=== PATIENT | male | born 1945 | race Caucasian/White ===

== ENCOUNTER → 2018-08-09 | Outpatient (CLI) | payer MEDICARE | END | disposition home or self-care (01) | LOC: EDUNIT# 11:00 → SHCH 11:15 | PROVIDERS: ATTEND Internal Medicine Cardiovascular Disease | DX: I73.9 Peripheral vascular disease, unspecified (principal); I70.0 Atherosclerosis of aorta; I51.7 Cardiomegaly; I35.0 Nonrheumatic aortic (valve) stenosis; G45.8 Other transient cerebral ischemic attacks and related syndromes | CPT/HCPCS: 93306; 93880 ==

== ENCOUNTER → 2018-08-11 | Outpatient (CLI) | payer MEDICARE ==
[~2018-08-11] VITALS: Ht 177.8 cm; Wt 81.6 kg
[~2018-08-11] MED LIST: REGADENOSON 0.4 MG/5 ML PF SYG IVP SCH
== END | disposition home or self-care (01) ==
LOC: SHCH 07:48 → EDUNIT# 08:00
PROVIDERS: ATTEND Internal Medicine Cardiovascular Disease
DX: I35.0 Nonrheumatic aortic (valve) stenosis (principal)
CPT/HCPCS: 78452; 93017; 96374; A9500 ×2; J2785

== ENCOUNTER → 2019-04-20 | Outpatient (CLI) | payer MEDICARE | END | disposition home or self-care (01) | LOC: OIH 13:19 | PROVIDERS: ATTEND Internal Medicine | DX: J44.9 Chronic obstructive pulmonary disease, unspecified (principal) | CPT/HCPCS: 71046 ==

== ENCOUNTER → 2021-03-17 | Outpatient (CLI) | payer MEDICARE ==
[~2021-03-17] MED LIST changes: +IOHEXOL-350 50ML VIAL IV ONE; +IOHEXOL-350 75 ML VIAL IV ONE; -REGADENOSON 0.4 MG/5 ML PF SYG IVP SCH
== END | disposition home or self-care (01) ==
LOC: CANPRECLI → RAH 07:31
PROVIDERS: ATTEND Internal Medicine Cardiovascular Disease
DX: I71.4 Abdominal aortic aneurysm, without rupture (principal); I71.2 Thoracic aortic aneurysm, without rupture
CPT/HCPCS: 75635; Q9967 ×2

== ENCOUNTER 2021-04-14 08:47 | Day surgery (SDC) | payer MEDICARE ==
[2021-04-11 13:06] LABS: BASOPHILS % (AUTO) 0.7 % (0.0-5.0); EOSINOPHILS % (AUTO) 3.9 % (0.0-8.0); HEMATOCRIT 40.6 % (42-54); LYMPHOCYTES % (AUTO) 20.8 % (21.0-51.0); MEAN CORPUSCULAR HEMOGLOBIN 32.1 pg (27.0-33.0); MEAN CORPUSCULAR HGB CONC 34.2 g/dL (32.0-36.0); MEAN CORPUSCULAR VOLUME 93.8 fL (79-99); MONOCYTES % (AUTO) 9.8 % (3.0-13.0); PLATELET COUNT (AUTO) 148 K/uL (130-400); RED BLOOD CELL COUNT(AUTO) 4.33 MIL/uL (4.50-6.20); RED CELL DISTRIBUTION WIDTH 14.2 % (11.0-15.5); WHITE BLOOD COUNT (AUTO) 8.1 K/uL (4.8-10.8)
[2021-04-11 13:09] LABS: APPEARANCE,URINE Clear (CLEAR); BILIRUBIN,URINE Small (NEGATIVE); COLOR,URINE Dark Yellow (YELLOW); GLUCOSE, URINE (UA) Negative (NEGATIVE); KETONES,URINE Trace mg/dL (NEGATIVE); LEUKOCYTE ESTERASE ,URINE Trace (NEGATIVE); NITRATE,URINE Negative (NEGATIVE); OCCULT BLOOD,URINE Negative (NEGATIVE); PROTEIN,URINE Negative (NEGATIVE)
[2021-04-11 13:13] LABS: CREATININE 0.9 mg/dL (0.5-1.5); POTASSIUM 4.6 mmol/L (3.5-5.1)
[2021-04-11 13:15] LABS: INR 0.98 (0.85-1.15); PROTHROMBIN TIME 10.7 SEC (9.6-11.6)
[2021-04-11 13:17] LABS: PARTIAL THROMBOPLASTIN TIME 28.8 SEC (26.3-35.5)
[2021-04-11 13:35] LABS: BACTERIA,URINE Rare /HPF (None Seen); RBC,URINE 0-1 /HPF (0-1); SQUAMOUS EPITHELIAL CELL,UR Rare /HPF (0-2); WBC,URINE 0-1 /HPF (0-1)
[2021-04-11 17:06] VITALS: BP 178/92
[~2021-04-14] VITALS: Ht 177.8 cm; Wt 74.8 kg
[2021-04-14] VITALS (13 sets, daily range): BP systolic 101–156; BP diastolic 53–82
[~2021-04-14 08:47] MED LIST changes: +AEC81 PO; +IBUP-2077 PO; -IOHEXOL-350 50ML VIAL IV ONE; -IOHEXOL-350 75 ML VIAL IV ONE; +LISI10TA24 PO; +METO50TA18 PO; +MULT-1367 PO; +SERT-440 PO; +TAMS-1 PO; +UMEC1DIS IH
[2021-04-14] MEDS ORDERED: SODIUM CHLORIDE 0.9% 1000ML 1,000 ML IV ONE (10:10)
[2021-04-14] MEDS ORDERED: MIDAZOLAM HCL 1 MG/ML 2ML VIAL ONE (11:44)
[2021-04-14] MEDS ORDERED: HEPARIN SODIUM 1000UNIT/ML 10ML VIAL ONE (11:44)
[2021-04-14] MEDS ORDERED: IODIXANOL 320 MG/ML 100 ML VIAL ONE (11:44)
[2021-04-14] MEDS ORDERED: NITROGLYCERIN 2 MG/VIAL VIAL IV ONE (11:44)
[2021-04-14] MEDS ORDERED: MEPERIDINE-PF 25 MG/ML SYG ONE (11:44)
[2021-04-14] MEDS ORDERED: SODIUM BICARB 50MEQ 50ML VIAL 50 ML ONE (11:44)
[2021-04-14] MEDS ORDERED: LIDOCAINE HCL 2% 20ML ONE (11:45)
[2021-04-14] MEDS ORDERED: SODIUM CHLORIDE 0.9% 1000ML 1,000 ML IV SCH (13:30)
== END 2021-04-14 17:57 | disposition home or self-care (01) ==
LOC: DAH 08:47
PROVIDERS: ATTEND Internal Medicine Cardiovascular Disease
DX: I71.4 Abdominal aortic aneurysm, without rupture (principal); I10 Essential (primary) hypertension; Z85.46 Personal history of malignant neoplasm of prostate; Z88.2 Allergy status to sulfonamides; Z79.01 Long term (current) use of anticoagulants; Z79.82 Long term (current) use of aspirin; Z79.899 Other long term (current) drug therapy
CPT/HCPCS: 36246; 36415; 71045; 75625; 75716; 80048; 81001; 85025; 85610; 85730; 93005; A4215; A4216; A4221; A4222; A4223 ×3; A4606; A4663; C1769; C1894; J1644; J2175; J2250; J3490 ×3; J7030; Q9967; 96360; 96361; 99156; 99157

== ENCOUNTER → 2021-04-29 | Outpatient (CLI) | payer MEDICARE | END | disposition home or self-care (01) | LOC: SHCH 13:34 | PROVIDERS: ATTEND Internal Medicine Cardiovascular Disease | DX: I35.2 Nonrheumatic aortic (valve) stenosis with insufficiency (principal) | CPT/HCPCS: 93306; 93356 ==

== ENCOUNTER 2021-07-29 09:31 | Inpatient (IN) | payer MEDICARE ==
[2021-07-25 12:10] VITALS: BP 177/83
[2021-07-25 12:21] LABS: BASOPHILS % (AUTO) 0.7 % (0.0-5.0); EOSINOPHILS % (AUTO) 4.6 % (0.0-8.0); HEMATOCRIT 40.7 % (42-54); LYMPHOCYTES % (AUTO) 20.3 % (21.0-51.0); MEAN CORPUSCULAR HEMOGLOBIN 31.7 pg (27.0-33.0); MEAN CORPUSCULAR HGB CONC 34.4 g/dL (32.0-36.0); MEAN CORPUSCULAR VOLUME 92.3 fL (79-99); MONOCYTES % (AUTO) 9.8 % (3.0-13.0); NEUTROPHILS % (AUTO) 63.1 % (40.0-77.0); PLATELET COUNT (AUTO) 123 K/uL (130-400); RED BLOOD CELL COUNT(AUTO) 4.41 MIL/uL (4.50-6.20); RED CELL DISTRIBUTION WIDTH 13.9 % (11.0-15.5); WHITE BLOOD COUNT (AUTO) 6.8 K/uL (4.8-10.8)
[2021-07-25 12:32] LABS: INR 1.04 (0.85-1.15); PROTHROMBIN TIME 11.3 SEC (9.6-11.6)
[2021-07-25 12:33] LABS: PARTIAL THROMBOPLASTIN TIME 28.9 SEC (26.3-35.5)
[2021-07-25 12:35] LABS: ALBUMIN 4.1 g/dL (3.5-5.0); BILIRUBIN,TOTAL 0.6 mg/dL (0.2-1.0); CREATININE 0.7 mg/dL (0.5-1.5); POTASSIUM 4.6 mmol/L (3.5-5.1); TOTAL PROTEIN, SERUM 7.1 g/dL (6.0-8.3)
[2021-07-25 12:39] LABS: HEMOGLOBIN A1C 4.8 % (4.0-6.0)
[2021-07-29] VITALS (24 sets, daily range): BP systolic 112–181; BP diastolic 43–86
[~2021-07-29] VITALS: Ht 177.8 cm; Wt 76.2 kg
[~2021-07-29 09:31] MED LIST changes: +0.9%NACL 1000ML 1,000 ML IV ONE
[2021-07-29] MEDS ORDERED: CEFAZOLIN SODIUM 1 GM VIAL ONE (09:32)
[2021-07-29] MEDS: CEFAZOLIN SODIUM 1 GM VIAL ONE ×2 (09:58→10:45)
[2021-07-29] MEDS ORDERED: SUCCINYLCHOLINE CHLORIDE 20 MG/ML 10 ML VIAL ONE (10:10)
[2021-07-29] MEDS ORDERED: MIDAZOLAM HCL 1 MG/ML 2ML VIAL ONE (10:10)
[2021-07-29] MEDS ORDERED: ONDANSETRON 4MG INJ ONE (10:10)
[2021-07-29] MEDS ORDERED: LIDOCAINE PF 100MG/5ML (2%) SYRINGE 5ML ONE (10:10)
[2021-07-29] MEDS ORDERED: DEXAMETHASONE SOD PHOSPHATE 10MG/ML 1ML VIAL ONE (10:10)
[2021-07-29] MEDS ORDERED: FENTANYL CITRATE PF 50 MCG/1 ML 2ML VIAL ONE ×2 (10:11→12:56)
[2021-07-29] MEDS ORDERED: ROCURONIUM 10MG/1ML SYR 10 MG/ML ML ONE ×2 (10:11→12:33)
[2021-07-29] MEDS ORDERED: NEOSTIGMINE 5MG/5ML SYR IV ONE (10:11)
[2021-07-29] MEDS ORDERED: PROPOFOL 10 MG/ML 20ML VIAL IV ONE (10:11)
[2021-07-29] MEDS ORDERED: GLYCOPYRROLATE 1 MG/5 ML SYRINGE ONE (10:11)
[2021-07-29] MEDS ORDERED: MEPERIDINE-PF 25 MG/ML SYG ONE (10:16)
[2021-07-29] MEDS ORDERED: EPHEDRINE SULFATE 50 MG/ML AMPULE ONE ×2 (10:47→11:55)
[2021-07-29 12:50] LABS: HEMATOCRIT 33.1 % (42-54)
[2021-07-29] MEDS ORDERED: VASOPRESSIN 20 UNITS/ML 1ML VIAL ONE (12:52)
[2021-07-29] MEDS ORDERED: ALBUMIN (HUMAN) 5% 0 ML IV ONE (12:52)
[2021-07-29] MEDS ORDERED: ALBUMIN (HUMAN) 25% 150 ML IV ONE (12:55)
[2021-07-29] MEDS ORDERED: ACETAMINOPHEN 325 MG TAB PO PRN (14:00)
[2021-07-29] MEDS ORDERED: TRAMADOL HCL 50 MG TABLET PO PRN ×2 (14:00)
[2021-07-30] MEDS ORDERED: LISINOPRIL 10 MG TABLET ONE (00:09)
[2021-07-30 00:44] VITALS: BP 150/54
[2021-07-30 04:10] VITALS: BP 152/79
[2021-07-30 05:15] LABS: HEMATOCRIT 34.3 % (42-54); MEAN CORPUSCULAR HEMOGLOBIN 31.4 pg (27.0-33.0); MEAN CORPUSCULAR HGB CONC 33.8 g/dL (32.0-36.0); RED BLOOD CELL COUNT(AUTO) 3.69 MIL/uL (4.50-6.20); RED CELL DISTRIBUTION WIDTH 14.1 % (11.0-15.5); WHITE BLOOD COUNT (AUTO) 9.4 K/uL (4.8-10.8)
[2021-07-30 05:34] LABS: CREATININE 0.8 mg/dL (0.5-1.5); POTASSIUM 4.1 mmol/L (3.5-5.1)
[2021-07-30 07:32] VITALS: BP 157/60
[2021-07-30] MEDS ORDERED: LISINOPRIL 10 MG TABLET PO SCH (09:00)
[2021-07-30] MEDS ORDERED: TAMSULOSIN HCL 0.4 MG CAP.ER.24H PO SCH (09:00)
[2021-07-30] MEDS ORDERED: METOPROLOL TARTRATE 50 MG TAB PO SCH (09:00)
[2021-07-30] MEDS ORDERED: MULTIVITAMIN TABLET PO SCH (09:00)
[2021-07-30] MEDS ORDERED: ASPIRIN 81 MG EC TAB PO SCH (09:00)
[2021-07-30] MEDS ORDERED: Umeclidinium Brm/Vilanterol Tr (Anoro Ellipta 62.5-25 Mcg IH SCH (09:00)
[2021-07-30] MEDS ORDERED: SERTRALINE HCL 50 MG TABLET PO SCH (09:00)
[2021-07-30 11:19] VITALS: BP 134/68
[2021-07-30] MEDS ORDERED: CALCIUM CARB 500MG CHEW TAB PO PRN (15:30)
[2021-07-30 16:00] VITALS: BP 112/65
[2021-07-30] MEDS ORDERED: CLOPIDOGREL 75MG TAB PO SCH (17:00)
[2021-07-30] MEDS ORDERED: CLOP75TA14 PO (17:23)
== END 2021-07-30 19:28 | disposition home or self-care (01) | DRG 254 ==
LOC: DAHIP 09:31 → 4DH 14:41
PROVIDERS: ADMIT Thoracic Surgery (Cardiothoracic Vascular Surgery); ATTEND Thoracic Surgery (Cardiothoracic Vascular Surgery)
PROC: 041K0KL Bypass Right Femoral Artery to Popliteal Artery with Nonautologous Tissue Substitute, Open Approach (ICD-10-PCS; 2021-07-29)
PROC: 041L0JH Bypass Left Femoral Artery to Right Femoral Artery with Synthetic Substitute, Open Approach (ICD-10-PCS; principal; 2021-07-29 10:55)
PROC: 04CK0ZZ Extirpation of Matter from Right Femoral Artery, Open Approach (ICD-10-PCS; 2021-07-29 10:55)
DX: I73.9 Peripheral vascular disease, unspecified (principal); E87.70 Fluid overload, unspecified; E78.00 Pure hypercholesterolemia, unspecified; Z20.822 Contact with and (suspected) exposure to COVID-19; Z88.2 Allergy status to sulfonamides; Z79.899 Other long term (current) drug therapy
CPT/HCPCS: 36415; 71046; 80048; 80053; 80061; 83036; 85014; 85018; 85025; 85027; 85610; 85730; 86850; 86900; 86901; 87635; 93005; C1757; G0378; J0330; J0690; J1100; J1644; J2001; J2175; J2250; J2405; J2704; J2710; J3010; J3490; J7030; J7040; J7120; P9045; P9047

== ENCOUNTER → 2022-03-26 | Outpatient (CLI) | payer MEDICARE ==
[~2022-03-26] MED LIST changes: -0.9%NACL 1000ML 1,000 ML IV ONE; +CLOP75TA14 PO
== END | disposition home or self-care (01) ==
LOC: SHCH 12:39
PROVIDERS: ATTEND Internal Medicine Cardiovascular Disease
DX: I08.8 Other rheumatic multiple valve diseases (principal); I71.4 Abdominal aortic aneurysm, without rupture; E78.5 Hyperlipidemia, unspecified; I65.23 Occlusion and stenosis of bilateral carotid arteries; I70.203 Unspecified atherosclerosis of native arteries of extremities, bilateral legs; Z95.828 Presence of other vascular implants and grafts; I11.9 Hypertensive heart disease without heart failure
CPT/HCPCS: 93306; 93880; 93925

== ENCOUNTER → 2022-06-09 | Outpatient (CLI) | payer MEDICARE ==
[~2022-06-09] MED LIST changes: +IOHEXOL 350 MG/ML 100ML INFUS..BTL IV ONE; +IOHEXOL-350 50ML VIAL IV ONE
== END | disposition home or self-care (01) ==
LOC: RAH 09:25
PROVIDERS: ATTEND Internal Medicine Cardiovascular Disease
DX: I70.203 Unspecified atherosclerosis of native arteries of extremities, bilateral legs (principal); I77.1 Stricture of artery; I77.89 Other specified disorders of arteries and arterioles
CPT/HCPCS: 75635; Q9967 ×2

== ENCOUNTER → 2022-07-10 | Outpatient (CLI) | payer MEDICARE ==
[~2022-07-10] MED LIST changes: -IOHEXOL 350 MG/ML 100ML INFUS..BTL IV ONE; -IOHEXOL-350 50ML VIAL IV ONE
== END | disposition home or self-care (01) ==
LOC: RAH 13:37
PROVIDERS: ATTEND Family Medicine
DX: M47.816 Spondylosis without myelopathy or radiculopathy, lumbar region (principal); M48.061 Spinal stenosis, lumbar region without neurogenic claudication; I71.4 Abdominal aortic aneurysm, without rupture; M51.26 Other intervertebral disc displacement, lumbar region; M41.86 Other forms of scoliosis, lumbar region; M21.371 Foot drop, right foot
CPT/HCPCS: 72148

== ENCOUNTER 2024-09-04 11:47 | Observation (INO) | payer OTHER, MEDICARE ==
[~2024-09-04] VITALS: Ht 177.8 cm; Wt 63.5 kg
[~2024-09-04 11:47] MED LIST changes: +CLOP-31 PO; -CLOP75TA14 PO
[2024-09-04 12:28] LABS: BASOPHILS # (AUTO) 0.02 K/uL (0.00-0.20); BASOPHILS % (AUTO) 0.3 % (0.0-5.0); EOSINOPHILS # (AUTO) 0.07 K/uL (0.00-0.70); EOSINOPHILS % (AUTO) 0.9 % (0.0-8.0); HEMATOCRIT 31.6 % (42-54); IMMATURE GRANULOCYTE ABSOLUTE 0.07 K/uL (0-1); LYMPHOCYTES # (AUTO) 0.9 K/uL (1.0-4.8); LYMPHOCYTES % (AUTO) 12.3 % (21.0-51.0); MEAN CORPUSCULAR HGB CONC 36.1 g/dL (32.0-36.0); MEAN CORPUSCULAR VOLUME 85.9 fL (79-99); MONOCYTES # (AUTO) 0.7 K/uL (0.1-1.0); MONOCYTES % (AUTO) 9.3 % (3.0-13.0); NEUTROPHILS # (AUTO) 5.7 K/uL (1.8-7.7); NEUTROPHILS % (AUTO) 76.3 % (40.0-77.0); PLATELET COUNT (AUTO) 113 K/uL (130-400); RED BLOOD CELL COUNT(AUTO) 3.68 MIL/uL (4.50-6.20); RED CELL DISTRIBUTION WIDTH 14.6 % (11.0-15.5); WHITE BLOOD COUNT (AUTO) 7.4 K/uL (4.8-10.8)
[2024-09-04 12:35] LABS: INR 1.08 (0.85-1.15); PROTHROMBIN TIME 11.6 SEC (9.6-11.6)
[2024-09-04 12:37] LABS: PARTIAL THROMBOPLASTIN TIME 31.8 SEC (26.3-35.5)
[2024-09-04 12:40] LABS: ALBUMIN 3.5 g/dL (3.5-5.0); BILIRUBIN,DIRECT 0.4 mg/dL (0.0-0.3); BILIRUBIN,TOTAL 1.1 mg/dL (0.2-1.0); POTASSIUM 3.8 mmol/L (3.5-5.1); TOTAL PROTEIN, SERUM 6.6 g/dL (6.0-8.3)
[2024-09-04] MEDS: 0.9%NACL 1000ML 1,000 ML IV ONE (14:10)
[2024-09-04] MEDS ORDERED: acetaMINOPHEN 325 MG TAB PO PRN ×2 (15:30)
[2024-09-04] MEDS ORDERED: hydrALAZine 20MG/ML VIAL IV PRN (15:30)
[2024-09-04] MEDS ORDERED: ondanSETRON 4MG INJ IV PRN (15:30)
[2024-09-04] MEDS ORDERED: NITROGLYCERIN 0.4 MG SL TAB SL PRN (15:30)
[2024-09-04] MEDS ORDERED: PoTASSium chl 10% ELIXIR 20MEQ 20 MEQ/15 ML UDCUP PO PRN (16:30)
[2024-09-04] MEDS ORDERED: GLUCAGON 1MG KIT 1 MG ML IM PRN (16:30)
[2024-09-04] MEDS ORDERED: PoTASSium chloRIDE 20MEQ/100ML 100 ML IV PRN (16:30)
[2024-09-04] MEDS ORDERED: DEXTROSE 50%-WATER 50 ML DISP.SYRIN IV PRN (16:30)
[2024-09-04] MEDS ORDERED: MAGNESIUM 2GM PREMIX 50ML 50 ML IV PRN (16:30)
[2024-09-04] MEDS ORDERED: PoTASSium chloRIDE 20MEQ ER 20 MEQ ERTAB PO PRN (16:30)
[2024-09-04] MEDS: 0.9%NACL 1000ML 1,000 ML IV SCH (17:30)
[2024-09-04] MEDS: HEParin 5,000 UNIT VIAL SQ SCH (17:31)
[2024-09-04 21:21] LABS: BILIRUBIN,TOTAL 1.2 mg/dL (0.2-1.0); CREATININE 0.9 mg/dL (0.5-1.3); POTASSIUM 3.8 mmol/L (3.5-5.1)
[2024-09-04 22:07] VITALS: O2SAT 96
[2024-09-04 22:39] VITALS: BP 124/69; PULSE 89; RESP 18; TEMP 98.6
[2024-09-05 00:19] VITALS: BP 120/64; PULSE 84; RESP 18; TEMP 98.2
[2024-09-05 01:40] LABS: COVID19 (SARS ANTIGEN RAPID) PRESUMPTIVE NEGATIVE (NEGATIVE); INFLUENZA TYPE A Negative For Type A (NEGATIVE); INFLUENZA TYPE B Negative For Type B (NEGATIVE)
[2024-09-05 04:24] VITALS: BP 117/65; PULSE 65; RESP 18; TEMP 98.2
[2024-09-05 07:00] VITALS: BP 111/63; PULSE 84; RESP 12; TEMP 97.5
[2024-09-05 08:00] VITALS: O2SAT 96
[2024-09-05] MEDS ORDERED: cloPIDOgrel 75MG TAB PO SCH (09:00)
[2024-09-05] MEDS: VILANTEROL TR IH SCH (09:00)
[2024-09-05] MEDS: UMECLIDINIUM BRM IH SCH (09:00)
[2024-09-05 09:30] LABS: BASOPHILS # (AUTO) 0.02 K/uL (0.00-0.20); BASOPHILS % (AUTO) 0.3 % (0.0-5.0); EOSINOPHILS # (AUTO) 0.07 K/uL (0.00-0.70); EOSINOPHILS % (AUTO) 1.2 % (0.0-8.0); HEMATOCRIT 30.2 % (42-54); IMMATURE GRANULOCYTE ABSOLUTE 0.08 K/uL (0-1); LYMPHOCYTES # (AUTO) 0.6 K/uL (1.0-4.8); LYMPHOCYTES % (AUTO) 10.1 % (21.0-51.0); MEAN CORPUSCULAR HEMOGLOBIN 31.2 pg (27.0-33.0); MEAN CORPUSCULAR HGB CONC 35.4 g/dL (32.0-36.0); MONOCYTES # (AUTO) 0.6 K/uL (0.1-1.0); MONOCYTES % (AUTO) 9.2 % (3.0-13.0); NEUTROPHILS # (AUTO) 4.7 K/uL (1.8-7.7); NEUTROPHILS % (AUTO) 77.9 % (40.0-77.0); PLATELET COUNT (AUTO) 104 K/uL (130-400); RED BLOOD CELL COUNT(AUTO) 3.43 MIL/uL (4.50-6.20); RED CELL DISTRIBUTION WIDTH 14.7 % (11.0-15.5)
[2024-09-05 09:45] LABS: BILIRUBIN,TOTAL 1.2 mg/dL (0.2-1.0); CREATININE 0.9 mg/dL (0.5-1.3); POTASSIUM 4.3 mmol/L (3.5-5.1); TOTAL PROTEIN, SERUM 5.8 g/dL (6.0-8.3)
[2024-09-05] MEDS: cloPIDOgrel 75MG TAB PO SCH (10:00)
[2024-09-05] MEDS: LISINOPRIL 10 MG TABLET PO SCH (10:00)
[2024-09-05] MEDS: tamSULOsin HCL 0.4 MG CAP.ER.24H PO SCH (10:00)
[2024-09-05] MEDS: ASPIRIN 81 MG EC TAB PO SCH (10:00)
[2024-09-05] MEDS: metoPROLOL tartRATE 50 MG TAB PO SCH (10:00)
[2024-09-05] MEDS: NICOTINE 21 MG/ 24 HR PATCH TD SCH (10:03)
[2024-09-05 11:00] VITALS: BP 93/54; PULSE 73; RESP 16; TEMP 97.6
[2024-09-05] MEDS ORDERED: IpraTROPium/alBUTERol SULFATE 3 ML SOLUTION IH PRN (11:30)
[2024-09-05] MEDS: guaiFENesin-DM 200/20MG 10ML PO PRN (11:43)
[2024-09-05] MEDS ORDERED: NACL1 PO (14:49)
[2024-09-05 15:21] LABS: ALBUMIN 2.9 g/dL (3.5-5.0); BILIRUBIN,TOTAL 1.2 mg/dL (0.2-1.0); CREATININE 0.9 mg/dL (0.5-1.3); TOTAL PROTEIN, SERUM 5.7 g/dL (6.0-8.3)
[2024-09-06] MEDS ORDERED: FERROUS GLUCONATE 324MG TABLET.DR PO SCH (09:00)
== END 2024-09-05 15:30 | disposition home or self-care (01) ==
LOC: EDH 11:47 → EDHIP 15:00 → INTOOBSV 15:00 → OBSVTOIN 15:00 → 2AH 20:54
PROVIDERS: ADMIT Internal Medicine Sleep Medicine; ATTEND Internal Medicine Sleep Medicine
DX: E87.1 Hypo-osmolality and hyponatremia (principal); Z20.822 Contact with and (suspected) exposure to COVID-19; E87.8 Other disorders of electrolyte and fluid balance, not elsewhere classified; D50.9 Iron deficiency anemia, unspecified; N41.9 Inflammatory disease of prostate, unspecified; R17 Unspecified jaundice; R79.89 Other specified abnormal findings of blood chemistry; I25.10 Atherosclerotic heart disease of native coronary artery without angina pectoris; I73.9 Peripheral vascular disease, unspecified; E44.0 Moderate protein-calorie malnutrition; I11.9 Hypertensive heart disease without heart failure; F32.A Depression, unspecified; G89.29 Other chronic pain; F17.210 Nicotine dependence, cigarettes, uncomplicated; I44.7 Left bundle-branch block, unspecified; I35.2 Nonrheumatic aortic (valve) stenosis with insufficiency; Z88.2 Allergy status to sulfonamides; Z90.49 Acquired absence of other specified parts of digestive tract; Z79.899 Other long term (current) drug therapy; Z86.79 Personal history of other diseases of the circulatory system; Z68.20 Body mass index [BMI] 20.0-20.9, adult
CPT/HCPCS: 99285; 96361 ×3; 96360; 83540; 83550; 82550; 83735; 84484 ×2; 80053 ×3; 84300; 83880; 85025 ×2; 85610; 85730; 83930; 83935; 36415 ×2; 93005; 96372 ×2; 93306; 97161; 87426; 97530; 97116; 80061; 87804 ×2; 93356; 76376; 80076; J7030; J1644 ×3; G0378; 80048

== ENCOUNTER 2024-09-06 07:52 | Day surgery (SDC) | payer OTHER ==
[2024-09-04 11:08] LABS: BASOPHILS # (AUTO) 0.03 K/uL (0.00-0.20); BASOPHILS % (AUTO) 0.4 % (0.0-5.0); EOSINOPHILS # (AUTO) 0.07 K/uL (0.00-0.70); EOSINOPHILS % (AUTO) 0.8 % (0.0-8.0); HEMATOCRIT 31.9 % (42-54); IMMATURE GRANULOCYTE ABSOLUTE 0.13 K/uL (0-1); LYMPHOCYTES # (AUTO) 0.8 K/uL (1.0-4.8); MEAN CORPUSCULAR HEMOGLOBIN 31.1 pg (27.0-33.0); MEAN CORPUSCULAR HGB CONC 35.7 g/dL (32.0-36.0); MEAN CORPUSCULAR VOLUME 87.2 fL (79-99); MONOCYTES # (AUTO) 0.9 K/uL (0.1-1.0); MONOCYTES % (AUTO) 10.4 % (3.0-13.0); NEUTROPHILS # (AUTO) 6.6 K/uL (1.8-7.7); NEUTROPHILS % (AUTO) 77.9 % (40.0-77.0); PLATELET COUNT (AUTO) 121 K/uL (130-400); RED BLOOD CELL COUNT(AUTO) 3.66 MIL/uL (4.50-6.20); RED CELL DISTRIBUTION WIDTH 14.8 % (11.0-15.5); WHITE BLOOD COUNT (AUTO) 8.5 K/uL (4.8-10.8)
[2024-09-04 11:14] LABS: POTASSIUM 4.1 mmol/L (3.5-5.1)
[2024-09-04 11:16] LABS: INR 1.09 (0.85-1.15); PROTHROMBIN TIME 11.7 SEC (9.6-11.6)
[2024-09-04 11:18] LABS: PARTIAL THROMBOPLASTIN TIME 31.6 SEC (26.3-35.5)
[2024-09-04 11:19] LABS: APPEARANCE,URINE CLEAR (CLEAR); BILIRUBIN,URINE NEGATIVE (NEGATIVE); COLOR,URINE YELLOW (YELLOW); GLUCOSE, URINE (UA) NEGATIVE (NEGATIVE); KETONES,URINE NEGATIVE (NEGATIVE); LEUKOCYTE ESTERASE ,URINE NEGATIVE Leu/uL (NEGATIVE); NITRATE,URINE NEGATIVE (NEGATIVE); OCCULT BLOOD,URINE NEGATIVE (NEGATIVE); PH,URINE 5.5 (5.0-8.0); PROTEIN,URINE NEGATIVE (NEGATIVE); UROBILINOGEN,URINE 3 mg/dL (0.2-1.0)
[2024-09-04 11:20] LABS: ADD UA MICROSCOPIC YES
[2024-09-04 11:22] LABS: WBC,URINE 0-1 /HPF (0-1)
[2024-09-04 11:26] LABS: B-TYPE NATRIURETIC PEPTIDE 1240 pg/mL (0-100)
[2024-09-05 14:57] VITALS: BP 109/57; PULSE 80; RESP 18; TEMP 98
[~2024-09-06] VITALS: Ht 177.8 cm; Wt 61.2 kg
[2024-09-06] VITALS (11 sets, daily range): BP systolic 107–122; BP diastolic 49–83; PULSE 72–84; RESP 16; TEMP 97–98
[~2024-09-06 07:52] MED LIST changes: +NACL1 PO
[2024-09-06] MEDS: 0.9%NACL 1000ML 1,000 ML IV SCH ×2 (09:15→12:27)
[2024-09-06] MEDS ORDERED: IOHEXOL 350 MG/ML 100ML INFUS..BTL IV ONE (09:16)
[2024-09-06] MEDS ORDERED: LIDOCAINE HCL 400MG/20ML VIAL ONE (09:16)
[2024-09-06] MEDS ORDERED: HEParin-NS 1,000 UNIT/500 ML 1,000 ML IV ONE (09:16)
[2024-09-06] MEDS ORDERED: NITROGLYCERIN 50MG VIAL ONE (09:17)
[2024-09-06] MEDS ORDERED: HEParin 10,000 UNIT/10ML (1,000 UNIT/ML) VIAL ONE (10:06)
[2024-09-06] MEDS ORDERED: MIDAZOLAM HCL 1 MG/ML 2ML VIAL ONE (10:07)
[2024-09-06] MEDS ORDERED: FENTanyl CITRate PF 50 MCG/1 ML 2ML VIAL ONE (10:07)
[2024-09-06] MEDS ORDERED: VERAPAMIL HCL 2.5 MG/ML VIAL ONE (10:08)
[2024-09-06] MEDS ORDERED: IOHEXOL-350 50ML VIAL IV ONE (10:38)
== END 2024-09-06 15:30 | disposition home or self-care (01) ==
LOC: DAH 07:52
PROVIDERS: ATTEND Internal Medicine Interventional Cardiology
DX: I25.118 Atherosclerotic heart disease of native coronary artery with other forms of angina pectoris (principal); R06.09 Other forms of dyspnea; I11.0 Hypertensive heart disease with heart failure; I50.43 Acute on chronic combined systolic (congestive) and diastolic (congestive) heart failure; I44.7 Left bundle-branch block, unspecified; I35.0 Nonrheumatic aortic (valve) stenosis; I65.23 Occlusion and stenosis of bilateral carotid arteries; I73.9 Peripheral vascular disease, unspecified; R53.83 Other fatigue; M79.606 Pain in leg, unspecified; R00.2 Palpitations; Z95.1 Presence of aortocoronary bypass graft; G60.8 Other hereditary and idiopathic neuropathies; I25.2 Old myocardial infarction; Z79.899 Other long term (current) drug therapy
CPT/HCPCS: 80048; 83880; 85025; 85610; 85730; 81001; 36415 ×2; 71045; 93005; 93460; 92978; 85347; C1769 ×4; C1894 ×2; A4649; C1887; C1753; J3010; J3490 ×3; J1644 ×2; J2250; Q9967 ×2; A4215; A4222; A4221; A4663; A4216; A4606; Q9965; A4223 ×3; 99156; 99157